=== PATIENT | male | born 1975 | race Caucasian/White ===

== ENCOUNTER 2017-05-11 12:38 | Inpatient (IN) | payer MEDICAID ==
[~2017-05-11] VITALS: Ht 177.8 cm; Wt 70.4 kg
[2017-05-11] MEDS ORDERED: SODIUM CHLORIDE 0.9% 1,000 ML IV ONE ×2 (13:15→15:42)
[2017-05-11] MEDS ORDERED: SODIUM CHLORIDE 0.9% 1,000ML IVBOLUS ONE ×2 (13:30→17:00)
[2017-05-11] MEDS ORDERED: THIAMINE 100 MG in SODIUM CHLORIDE 0.9% 50 ML IVPB ONE (13:30)
[2017-05-11] MEDS ORDERED: ONDANSETRON 2MG/ML, 2ML IVPush ONE (13:30)
[2017-05-11] MEDS ORDERED: ONDANSETRON 2MG/ML, 2ML ONE (13:44)
[2017-05-11] MEDS ORDERED: THIAMINE 100MG TABLET ONE (13:44)
[2017-05-11 14:05] LABS: PH, VENOUS 7.164 pH (7.320-7.420)
[2017-05-11 14:10] LABS: MEAN CORPUSCULAR HGB CONC 33.2 g/dL (33.2-36.2); MEAN CORPUSCULAR VOLUME 105.6 fL (81-97); MEAN PLATELET VOLUME 8.7 fL (7.4-10.4); PLATELET COUNT 245 x10^3/uL (130-400); RED CELL DISTRIBUTION WIDTH 13.4 % (9.4-14.8)
[2017-05-11 14:17] LABS: ALBUMIN 5.2 g/dL (3.4-5.0); ANION GAP 32 mmol/L (5-15); CALCIUM 9.4 mg/dL (8.5-10.1); CHLORIDE 92 mmol/L (98-107)
[2017-05-11 14:20] LABS: ALANINE AMINOTRANSFERASE 135 U/L (12-78); ALKALINE PHOSPHATASE 131 U/L (45-117); BILIRUBIN,TOTAL 2.5 mg/dL (0.2-1.0); CREATININE 2.22 mg/dL (0.7-1.3); TOTAL PROTEIN 9.7 g/dL (6.4-8.2)
[2017-05-11 14:29] LABS: ACETONE, SERUM Moderate(40mg/dL) mg/dL (Negative)
[2017-05-11 14:34] LABS: BASOPHILS # (AUTO) 0.01 x10^3/uL (0-0.1); BASOPHILS % (AUTO) 0 % (0-1); EOSINOPHILS % (AUTO) 0 % (1-7); LYMPHOCYTES # (AUTO) 0.27 x10^3/uL (1-3.4); LYMPHOCYTES % (AUTO) 2 % (22-44); MD SCAN; MONOCYTES # (AUTO) 0.66 x10^3/uL (0.2-0.8); MONOCYTES % (AUTO) 4 % (2-9); NEUTROPHILS # (AUTO) 14.83 x10^3/uL (1.8-6.8); NEUTROPHILS % (AUTO) 94 % (42-75)
[2017-05-11 14:59] LABS: MICROSCOPIC INDICATED
[2017-05-11 15:00] LABS: INTERNATIONAL NORMALIZED RATIO 1.09 (0.93-1.1); PROTHROMBIN TIME 11.2 Seconds (9.6-11.5)
[2017-05-11 15:13] LABS: CULTURE INDICATED? NO
[2017-05-11] MEDS ORDERED: SODIUM CHLORIDE FLUSH 10ML SYR IVF PRN (16:00)
[2017-05-11] MEDS ORDERED: LABETALOL 5MG/ML, 20ML IVPush PRN (16:30)
[2017-05-11] MEDS ORDERED: ACETAMINOPHEN 325 MG TABLET PO PRN (16:30)
[2017-05-11] MEDS ORDERED: LORazepam 2 MG/ML, 1ML IVPush PRN (16:30)
[2017-05-11] MEDS ORDERED: BISACODYL 10 MG SUPP PR PRN (16:30)
[2017-05-11] MEDS ORDERED: ONDANSETRON 2MG/ML, 2ML IVPush PRN (16:30)
[2017-05-11] MEDS ORDERED: POLYETHYLENE GLYCOL 17 GM PACKET PO PRN (16:30)
[2017-05-11] MEDS ORDERED: DOCUSATE 100 MG CAPSULE PO PRN (16:30)
[2017-05-11 17:04] VITALS: BP 134/93
[2017-05-11] MEDS: SODIUM BICARB 8.4%,50ML SYR. 100 MEQ in SODIUM CHLORIDE 0.45% 1,000 ML IV SCH (18:40)
[2017-05-11] MEDS ORDERED: FLU VACC QS2017-18 (36MOS+) UP/PF 0.5 ML IM-VACC ONE (19:00)
[2017-05-11 21:11] VITALS: BP 116/77
[2017-05-11 21:15] LABS: ANION GAP 13 mmol/L (5-15); CALCIUM 7.4 mg/dL (8.5-10.1); CHLORIDE 100 mmol/L (98-107); CREATININE 1.01 mg/dL (0.7-1.3)
[2017-05-11] MEDS: BACLOFEN 10 MG TABLET PO SCH (21:17)
[2017-05-11] MEDS: POTASSIUM CHLORIDE 20 MEQ, MAGNESIUM SULFATE 2 GM, MVI ADULT 10 ML, FOLIC ACID 1 MG in ... IV SCH (21:17)
[2017-05-11] MEDS: HEPARIN 5,000 UNITS/ML, 1ML SQ SCH (21:17)
[2017-05-12 01:20] VITALS: BP 118/76
[2017-05-12] MEDS: SODIUM BICARB 8.4%,50ML SYR. 100 MEQ in SODIUM CHLORIDE 0.45% 1,000 ML IV SCH ×2 (02:06→10:26)
[2017-05-12] MEDS: POTASSIUM CHLORIDE 20 MEQ, MAGNESIUM SULFATE 2 GM, MVI ADULT 10 ML, FOLIC ACID 1 MG in ... IV SCH (02:06)
[2017-05-12 04:46] LABS: BASOPHILS # (AUTO) 0.03 x10^3/uL (0-0.1); BASOPHILS % (AUTO) 0 % (0-1); EOSINOPHILS % (AUTO) 0 % (1-7); LYMPHOCYTES # (AUTO) 0.88 x10^3/uL (1-3.4); LYMPHOCYTES % (AUTO) 11 % (22-44); MD NO; MEAN CORPUSCULAR HEMOGLOBIN 36.3 pg (27.5-34.5); MEAN CORPUSCULAR HGB CONC 34.8 g/dL (33.2-36.2); MEAN CORPUSCULAR VOLUME 104.3 fL (81-97); MEAN PLATELET VOLUME 8.6 fL (7.4-10.4); MONOCYTES # (AUTO) 0.51 x10^3/uL (0.2-0.8); MONOCYTES % (AUTO) 6 % (2-9); NEUTROPHILS # (AUTO) 7.01 x10^3/uL (1.8-6.8); NEUTROPHILS % (AUTO) 83 % (42-75); PLATELET COUNT 173 x10^3/uL (130-400); RED BLOOD COUNT 4.07 x10^6/uL (4.38-5.82)
[2017-05-12 04:56] LABS: CHLORIDE 99 mmol/L (98-107)
[2017-05-12 05:07] LABS: ALANINE AMINOTRANSFERASE 86 U/L (12-78); ALBUMIN 4.1 g/dL (3.4-5.0); ALKALINE PHOSPHATASE 89 U/L (45-117); ANION GAP 13 mmol/L (5-15); BILIRUBIN,TOTAL 1.4 mg/dL (0.2-1.0); CALCIUM 7.7 mg/dL (8.5-10.1); CREATININE 0.97 mg/dL (0.7-1.3); TOTAL PROTEIN 7.1 g/dL (6.4-8.2)
[2017-05-12] MEDS: HEPARIN 5,000 UNITS/ML, 1ML SQ SCH ×3 (05:50→20:59)
[2017-05-12 07:05] VITALS: BP 114/73
[2017-05-12] MEDS: THIAMINE 100MG TABLET PO SCH (08:00)
[2017-05-12] MEDS ORDERED: THIAMINE 100MG TABLET PO SCH (09:00)
[2017-05-12] MEDS: BACLOFEN 10 MG TABLET PO SCH ×3 (09:05→20:58)
[2017-05-12] MEDS: POTASSIUM CHLORIDE 10 MEQ in SODIUM CHLORIDE 0.9% 1,000 ML IV SCH (12:20)
[2017-05-12 13:23] VITALS: BP 120/78
[2017-05-12 20:00] VITALS: BP_SYST 114; BP_SYST 119; BP_DIAS 76
[2017-05-12] MEDS: DIPHENHYDRAMINE 25 MG CAPSULE PO PRN ×2 (22:12→23:14)
[2017-05-12] MEDS ORDERED: ALUMINUM/MAG/SIMETHICONE 30 ML UDC PO PRN (23:30)
[2017-05-13] MEDS: POTASSIUM CHLORIDE 10 MEQ in SODIUM CHLORIDE 0.9% 1,000 ML IV SCH (01:20)
[2017-05-13 02:00] VITALS: BP 124/77
[2017-05-13] MEDS: HEPARIN 5,000 UNITS/ML, 1ML SQ SCH ×2 (04:27→12:35)
[2017-05-13 05:31] LABS: ALBUMIN 3.2 g/dL (3.4-5.0); ANION GAP 6 mmol/L (5-15); CHLORIDE 104 mmol/L (98-107)
[2017-05-13 05:36] LABS: ALANINE AMINOTRANSFERASE 68 U/L (12-78); ALKALINE PHOSPHATASE 71 U/L (45-117); BILIRUBIN,TOTAL 1.1 mg/dL (0.2-1.0); CREATININE 0.64 mg/dL (0.7-1.3)
[2017-05-13 07:25] VITALS: BP 114/74
[2017-05-13] MEDS: THIAMINE 100MG TABLET PO SCH (07:36)
[2017-05-13] MEDS: BACLOFEN 10 MG TABLET PO SCH (07:36)
[2017-05-13] MEDS ORDERED: MULTIVITAMIN 1 TABLET PO SCH (09:00)
[2017-05-13] MEDS ORDERED: FOLIC ACID 1 MG TABLET PO SCH (09:00)
[2017-05-13] MEDS ORDERED: BACL-19 PO (10:19)
[2017-05-13] MEDS ORDERED: FOLI-17 PO (10:19)
[2017-05-13] MEDS ORDERED: THIA100T6 PO (10:19)
[2017-05-13] MEDS ORDERED: MULT1TAB60 PO (10:19)
[2017-05-13 12:17] VITALS: BP 122/77
== END 2017-05-13 14:00 | disposition home or self-care (01) | DRG 682 ==
LOC: ED 15:21 → EDIP 17:36 → 4EST 19:05 → DCLOUNGE 05-13 13:47
PROVIDERS: ADMIT Internal Medicine; ATTEND Internal Medicine
DX: N17.0 Acute kidney failure with tubular necrosis (principal); K72.00 Acute and subacute hepatic failure without coma; E87.2 Acidosis; R65.10 Systemic inflammatory response syndrome (SIRS) of non-infectious origin without acute organ dysfunction; E87.1 Hypo-osmolality and hyponatremia; E87.5 Hyperkalemia; K76.0 Fatty (change of) liver, not elsewhere classified; E86.0 Dehydration; F10.10 Alcohol abuse, uncomplicated; R73.9 Hyperglycemia, unspecified; D75.89 Other specified diseases of blood and blood-forming organs; Z87.891 Personal history of nicotine dependence
CPT/HCPCS: 36415; 74022; 76700; 80048; 80053; 81001; 82010; 82803; 82962; 83690; 83735; 84100; 85025; 85610; 85730; 90686; 93005; 96361; 96374; J1644; J2405; J3475; J3480; J7042; J7030; Q0163

== ENCOUNTER 2018-07-05 23:25 | Inpatient (IN) | payer MEDICAID, OTHER ==
[~2018-07-05] VITALS: Ht 177.8 cm; Wt 74.9 kg
[~2018-07-05 23:25] MED LIST: BACL-19 PO; FOLI-17 PO; MULT1TAB60 PO; THIA100T67 PO
--- NOTE | 2018-07-05 23:41 | NUR ---
PRESENTS W/ WATERY DIARREAH X 2 DAYS WITH PROGRESSIVE MID TO LEFT LOWER QUADRANT PAIN X 2 HOURS. MILDLY FEBRILE , HR 100, BELLY SLIGHLY TENSE. REPORTS HX OF DIVERTICULITIS. NO SURGICAL HX. ATE SOLIDS/LIQUIDS AT 8
[2018-07-05 23:55] LABS: BASOPHILS # (AUTO) 0.01 x10^3/uL (0-0.1); BASOPHILS % (AUTO) 0 % (0-1); EOSINOPHILS % (AUTO) 0 % (1-7); LYMPHOCYTES # (AUTO) 0.57 x10^3/uL (1-3.4); LYMPHOCYTES % (AUTO) 9 % (22-44); MD NO; MEAN CORPUSCULAR HEMOGLOBIN 34.8 pg (27.5-34.5); MEAN CORPUSCULAR HGB CONC 34.5 g/dL (33.2-36.2); MEAN CORPUSCULAR VOLUME 100.7 fL (81-97); MEAN PLATELET VOLUME 8.4 fL (7.4-10.4); MONOCYTES # (AUTO) 0.47 x10^3/uL (0.2-0.8); MONOCYTES % (AUTO) 8 % (2-9); NEUTROPHILS # (AUTO) 5.21 x10^3/uL (1.8-6.8); NEUTROPHILS % (AUTO) 83 % (42-75); PLATELET COUNT 128 x10^3/uL (130-400); RED BLOOD COUNT 4.34 x10^6/uL (4.38-5.82); RED CELL DISTRIBUTION WIDTH 14.2 % (9.4-14.8)
[2018-07-06] MEDS ORDERED: ONDANSETRON 2MG/ML, 2ML ONE
[2018-07-06] MEDS ORDERED: ONDANSETRON 2MG/ML, 2ML IVPush ONE
[2018-07-06] MEDS: MORPHINE SULFATE 4 MG/ML, 1ML IVPush PRN ×2 (00:02→00:40)
[2018-07-06 00:05] LABS: ALANINE AMINOTRANSFERASE 100 U/L (12-78); ANION GAP 9 mmol/L (5-15); CALCIUM 8.7 mg/dL (8.5-10.1); CHLORIDE 98 mmol/L (98-107)
[2018-07-06 00:08] LABS: ALKALINE PHOSPHATASE 132 U/L (45-117); BILIRUBIN,TOTAL 1.8 mg/dL (0.2-1.0); CREATININE 0.82 mg/dL (0.7-1.3)
--- NOTE | 2018-07-06 00:11 | NUR ---
SPOKE TO PROVIDER ABOUT PATIENT MILD FEVER-TO MONITOR FOR NOW PATIENT NPO AND WITH FREQ DIARRHEA. YVAN REMINDED ABOUT IMPORTANCE OF PROMPT UA. CALL BROTHERS IN HAND/SIDE RAILS UP. AT BEDSIDE
--- NOTE | 2018-07-06 00:24 | NUR ---
report from marisa hidalgo assumed care of pt
--- NOTE | 2018-07-06 00:25 | NUR ---
UA SENT AT 1220A (VERY CONCENTRATED/DARK URINE), TO CT SCAN AT 1225. PATIENT REPORTS PAIN TO 0/10 REPORT TO LES RN
[2018-07-06 00:32] LABS: CULTURE INDICATED? YES; MICROSCOPIC INDICATED
[2018-07-06] MEDS ORDERED: MORPHINE SULFATE 4 MG/ML, 1ML ONE ×2 (00:39)
--- NOTE | 2018-07-06 00:48 | NUR ---
medicated per md request pt in nad
[2018-07-06] MEDS ORDERED: metroNIDAZOLE 500 MG TABLET ONE (00:53)
[2018-07-06] MEDS ORDERED: CIPROFLOXACIN 500 MG TABLET ONE (00:54)
--- NOTE | 2018-07-06 00:57 | NUR ---
ASSUMED CARE OF PATIENT.
[2018-07-06] MEDS ORDERED: CIPROFLOXACIN 500 MG TABLET PO ONE (01:00)
[2018-07-06] MEDS ORDERED: METRONIDAZOLE PMX 500MG/100ML 100 ML IVPB ONE (01:00)
[2018-07-06] MEDS ORDERED: CIPROFLOXACIN/PMX 400MG/200ML 100 ML IVPB ONE (01:00)
[2018-07-06] MEDS ORDERED: metroNIDAZOLE 500 MG TABLET PO ONE (01:00)
--- NOTE | 2018-07-06 01:01 | NUR ---
pt to be an admit. pt resting in room. at bedside. will continue to monitor.
[2018-07-06] MEDS ORDERED: OMNIPAQUE 350 MG/ML, 100ML BOTTLE ONE (01:09)
[2018-07-06] MEDS ORDERED: MORPHINE SULFATE 4 MG/ML, 1ML IVPush PRN (01:30)
[2018-07-06] MEDS ORDERED: ONDANSETRON 2MG/ML, 2ML IVPush PRN ×2 (01:30→02:00)
[2018-07-06] MEDS ORDERED: THIAMINE 200 MG in DEXTROSE 5% 50 ML IVPB ONE (02:00)
[2018-07-06] MEDS ORDERED: POTASSIUM CHLORIDE 20 MEQ TAB.ER.PRT PO ONE (02:00)
[2018-07-06] MEDS ORDERED: ENALAPRILAT 1.25 MG/ML, 2ML IVPush PRN (02:00)
[2018-07-06 02:30] VITALS: BP 101/66
[2018-07-06] MEDS: KETOROLAC 30 MG/1 ML IV PRN ×3 (02:57→23:51)
[2018-07-06 04:01] LABS: CLOSTRIDIUM DIFFICILE ANTIGEN NEGATIVE; CLOSTRIDIUM DIFFICILE TOXIN NEGATIVE (Negative)
[2018-07-06] MEDS: NS + 20MEQ KCL 1,000 ML IV SCH ×3 (04:11→23:45)
[2018-07-06] MEDS: ENOXAPARIN 40 MG/0.4 ML SQ SCH (04:11)
[2018-07-06] MEDS: morphine SULFATE 10 MG/ML, 1ML IVPush PRN ×5 (05:00→21:25)
[2018-07-06 05:25] LABS: ALBUMIN 3.9 g/dL (3.4-5.0); ANION GAP 7 mmol/L (5-15); CALCIUM 8.5 mg/dL (8.5-10.1); CHLORIDE 98 mmol/L (98-107)
[2018-07-06] MEDS: metroNIDAZOLE 500 MG TABLET PO SCH ×4 (05:26→21:25)
[2018-07-06 05:29] LABS: ALANINE AMINOTRANSFERASE 91 U/L (12-78); ALKALINE PHOSPHATASE 124 U/L (45-117); BILIRUBIN,TOTAL 1.8 mg/dL (0.2-1.0); TOTAL PROTEIN 6.8 g/dL (6.4-8.2)
[2018-07-06 07:17] VITALS: BP 102/64
[2018-07-06] MEDS: CIPROFLOXACIN 750 MG TABLET PO SCH ×2 (07:44→21:25)
[2018-07-06] MEDS: MULTIVITAMINS/MINERALS TABLET PO SCH (07:44)
[2018-07-06] MEDS: THIAMINE 100MG TABLET PO SCH (07:44)
[2018-07-06] MEDS: FOLIC ACID 1 MG TABLET PO SCH (07:44)
[2018-07-06 13:08] VITALS: BP 105/67
[2018-07-06 15:09] VITALS: BP 112/75
[2018-07-06 20:09] VITALS: BP 120/75
[2018-07-06] MEDS ORDERED: ACETAMINOPHEN 325 MG TABLET PO PRN (21:30)
[2018-07-07] MEDS: ENOXAPARIN 40 MG/0.4 ML SQ SCH (01:26)
[2018-07-07 02:28] VITALS: BP 97/63
[2018-07-07 05:42] LABS: HCT (SEDRATE) 37.5 % (39.2-51.8)
[2018-07-07 05:43] LABS: BASOPHILS # (AUTO) 0.02 x10^3/uL (0-0.1); BASOPHILS % (AUTO) 1 % (0-1); EOSINOPHILS % (AUTO) 0 % (1-7); LYMPHOCYTES # (AUTO) 0.77 x10^3/uL (1-3.4); LYMPHOCYTES % (AUTO) 14 % (22-44); MD NO; MEAN CORPUSCULAR HEMOGLOBIN 34.8 pg (27.5-34.5); MEAN CORPUSCULAR HGB CONC 34.5 g/dL (33.2-36.2); MEAN CORPUSCULAR VOLUME 100.8 fL (81-97); MEAN PLATELET VOLUME 8.5 fL (7.4-10.4); MONOCYTES # (AUTO) 0.75 x10^3/uL (0.2-0.8); MONOCYTES % (AUTO) 14 % (2-9); NEUTROPHILS % (AUTO) 72 % (42-75); PLATELET COUNT 105 x10^3/uL (130-400); RED BLOOD COUNT 3.72 x10^6/uL (4.38-5.82); RED CELL DISTRIBUTION WIDTH 13.6 % (9.4-14.8)
[2018-07-07 05:54] LABS: CHLORIDE 106 mmol/L (98-107)
[2018-07-07] MEDS: KETOROLAC 30 MG/1 ML IV PRN ×3 (06:10→20:28)
[2018-07-07] MEDS: metroNIDAZOLE 500 MG TABLET PO SCH ×4 (06:10→20:28)
[2018-07-07 06:12] LABS: ANION GAP 5 mmol/L (5-15); CALCIUM 7.8 mg/dL (8.5-10.1); CREATININE 0.78 mg/dL (0.7-1.3)
[2018-07-07 08:10] VITALS: BP 102/61
[2018-07-07] MEDS: MULTIVITAMINS/MINERALS TABLET PO SCH (08:47)
[2018-07-07] MEDS: FOLIC ACID 1 MG TABLET PO SCH (08:47)
[2018-07-07] MEDS: CIPROFLOXACIN 750 MG TABLET PO SCH ×2 (08:48→20:28)
[2018-07-07] MEDS: THIAMINE 100MG TABLET PO SCH (08:48)
[2018-07-07] MEDS: morphine SULFATE 10 MG/ML, 1ML IVPush PRN ×2 (08:54→18:33)
[2018-07-07] MEDS: NS + 20MEQ KCL 1,000 ML IV SCH ×2 (10:32→22:32)
[2018-07-07 12:15] VITALS: BP 104/67
[2018-07-07 18:52] VITALS: BP 119/80
[2018-07-08] MEDS: morphine SULFATE 10 MG/ML, 1ML IVPush PRN (00:30)
[2018-07-08] MEDS: ENOXAPARIN 40 MG/0.4 ML SQ SCH (01:45)
[2018-07-08 02:14] VITALS: BP 110/67
[2018-07-08] MEDS: KETOROLAC 30 MG/1 ML IV PRN ×2 (02:41→09:13)
[2018-07-08 05:16] LABS: BASOPHILS % (AUTO) 0 % (0-1); EOSINOPHILS # (AUTO) 0.02 x10^3/uL (0-0.4); EOSINOPHILS % (AUTO) 0 % (1-7); LYMPHOCYTES # (AUTO) 0.84 x10^3/uL (1-3.4); LYMPHOCYTES % (AUTO) 16 % (22-44); MD NO; MEAN CORPUSCULAR HGB CONC 34.4 g/dL (33.2-36.2); MEAN CORPUSCULAR VOLUME 101.9 fL (81-97); MEAN PLATELET VOLUME 8.5 fL (7.4-10.4); MONOCYTES # (AUTO) 0.74 x10^3/uL (0.2-0.8); MONOCYTES % (AUTO) 14 % (2-9); NEUTROPHILS # (AUTO) 3.58 x10^3/uL (1.8-6.8); NEUTROPHILS % (AUTO) 69 % (42-75); PLATELET COUNT 111 x10^3/uL (130-400); RED BLOOD COUNT 3.23 x10^6/uL (4.38-5.82); RED CELL DISTRIBUTION WIDTH 13.8 % (9.4-14.8)
[2018-07-08 05:23] LABS: ANION GAP 6 mmol/L (5-15); CALCIUM 7.5 mg/dL (8.5-10.1); CHLORIDE 106 mmol/L (98-107); CREATININE 0.68 mg/dL (0.7-1.3)
[2018-07-08] MEDS: metroNIDAZOLE 500 MG TABLET PO SCH ×2 (05:37→11:09)
[2018-07-08 07:14] VITALS: BP 110/70
[2018-07-08] MEDS: THIAMINE 100MG TABLET PO SCH (09:10)
[2018-07-08] MEDS: FOLIC ACID 1 MG TABLET PO SCH (09:10)
[2018-07-08] MEDS: MULTIVITAMINS/MINERALS TABLET PO SCH (09:10)
[2018-07-08] MEDS: CIPROFLOXACIN 750 MG TABLET PO SCH (09:10)
[2018-07-08] MEDS ORDERED: THIA100T67 PO (09:44)
[2018-07-08] MEDS ORDERED: CIPR750T PO (09:44)
[2018-07-08] MEDS ORDERED: METR500T PO (09:44)
[2018-07-08] MEDS: NS + 20MEQ KCL 1,000 ML IV SCH (09:50)
== END 2018-07-08 11:45 | disposition home or self-care (01) | DRG 392 ==
LOC: ED 07-06 00:26 → 4NOR 07-06 01:19 → DCLOUNGE 07-08 11:31
PROVIDERS: ADMIT Family Medicine; ATTEND Family Medicine
DX: K57.32 Diverticulitis of large intestine without perforation or abscess without bleeding (principal); N39.0 Urinary tract infection, site not specified; E87.1 Hypo-osmolality and hyponatremia; F10.21 Alcohol dependence, in remission; Z81.1 Family history of alcohol abuse and dependence; Z80.0 Family history of malignant neoplasm of digestive organs; K70.10 Alcoholic hepatitis without ascites; K59.00 Constipation, unspecified; F17.210 Nicotine dependence, cigarettes, uncomplicated; E87.6 Hypokalemia; Z96.653 Presence of artificial knee joint, bilateral
CPT/HCPCS: 36415; 74177; 80048; 80053; 80074; 80307; 81001; 83690; 85025; 85651; 86140; 87040; 87086; 87324; 96374; 96375; G0378; J1650; J1885; J2405; J3411; J3480; Q9967; J2270

== ENCOUNTER 2018-11-16 11:14 | Emergency (ER) | payer MEDICAID ==
[~2018-11-16] VITALS: Ht 177.8 cm; Wt 69.0 kg
[2018-11-16 17:53] VITALS: BP 142/82
== END 2018-11-16 18:00 | disposition home or self-care (01) ==
LOC: ED 14:15
DX: E86.0 Dehydration (principal); K29.20 Alcoholic gastritis without bleeding; F10.19 Alcohol abuse with unspecified alcohol-induced disorder; Y90.0 Blood alcohol level of less than 20 mg/100 ml; R11.2 Nausea with vomiting, unspecified; E87.6 Hypokalemia; F17.200 Nicotine dependence, unspecified, uncomplicated
CPT/HCPCS: 36415; 74021; 80053; 83690; 85025; 96361; 96365; 96366; 96372; 96375; 99284; J2405; J2765; J3411; J3480; J3490; J7030; J7040

== ENCOUNTER 2019-06-09 16:25 | Inpatient (IN) | payer MEDICAID ==
[~2019-06-09] VITALS: Ht 177.8 cm; Wt 77.2 kg
[~2019-06-09 16:25] MED LIST changes: +ACID1TAB7 PO; +CIPR750T PO; +METR500T PO; +NICO-485 TD; +VANC1VIA3 PO
[2019-06-09] MEDS ORDERED: SODIUM CHLORIDE 0.9% 1,000ML IVBOLUS ONE (17:30)
[2019-06-09] MEDS ORDERED: SODIUM CHLORIDE FLUSH 10ML SYR IVF ONE (17:30)
--- NOTE | 2019-06-09 17:42 | NUR ---
Pt ambulated to room, placed on monitor, at bedside, call light within reach, vomitted 1200 ml of bile and partially digested food, NAD, denies additional needs. Law performed assessment and discussed plan of care. Pt medicated per MAY for fever and nausea, see MAR for details. WCTM.
[2019-06-09] MEDS ORDERED: IBUPROFEN 600 MG TABLET ONE (17:45)
[2019-06-09] MEDS ORDERED: ONDANSETRON 2MG/ML, 2ML ONE ×2 (17:45→22:15)
[2019-06-09 17:55] LABS: BASOPHILS # (AUTO) 0.01 x10^3/uL (0-0.1); BASOPHILS % (AUTO) 0 % (0-1); EOSINOPHILS % (AUTO) 0 % (1-7); LYMPHOCYTES # (AUTO) 0.32 x10^3/uL (1-3.4); LYMPHOCYTES % (AUTO) 6 % (22-44); MD NO; MEAN CORPUSCULAR HEMOGLOBIN 32.2 pg (27.5-34.5); MEAN CORPUSCULAR HGB CONC 32.9 g/dL (33.2-36.2); MEAN CORPUSCULAR VOLUME 97.8 fL (81-97); MEAN PLATELET VOLUME 8.6 fL (7.4-10.4); MONOCYTES # (AUTO) 0.01 x10^3/uL (0.2-0.8); MONOCYTES % (AUTO) 0 % (2-9); NEUTROPHILS % (AUTO) 93 % (42-75); PLATELET COUNT 232 x10^3/uL (130-400); RED BLOOD COUNT 5.01 x10^6/uL (4.38-5.82)
[2019-06-09] MEDS ORDERED: ONDANSETRON 2MG/ML, 2ML IVPush ONE (18:00)
[2019-06-09] MEDS ORDERED: IBUPROFEN 600 MG TABLET PO ONE (18:00)
[2019-06-09 18:02] LABS: ALANINE AMINOTRANSFERASE 96 U/L (12-78); ALBUMIN 4.1 g/dL (3.4-5.0); ANION GAP 10 mmol/L (5-15); CALCIUM 9.4 mg/dL (8.5-10.1); CHLORIDE 105 mmol/L (98-107); CREATININE 0.98 mg/dL (0.7-1.3)
[2019-06-09 18:04] LABS: ALKALINE PHOSPHATASE 161 U/L (45-117); TOTAL PROTEIN 8.2 g/dL (6.4-8.2)
[2019-06-09 18:28] LABS: MICROSCOPIC NOT IND
--- NOTE | 2019-06-09 18:34 | NUR ---
Pt , Emerson, would like to be updated if pt is transferred to floor at this time. [phone].
[2019-06-09 18:35] LABS: CULTURE INDICATED? NO
[2019-06-09 18:46] LABS: RAPID INFLUENZA A Negative (Negative); RAPID INFLUENZA B Negative (Negative)
--- NOTE | 2019-06-09 18:50 | NUR ---
Bedside report to MARIA ISABEL Powell, pt care transferred at this time
[2019-06-09] MEDS ORDERED: LACTATED RINGERS 1,000 ML IVBOLUS ONE (19:00)
[2019-06-09 19:03] LABS: CLOSTRIDIUM DIFFICILE ANTIGEN NEGATIVE; CLOSTRIDIUM DIFFICILE TOXIN NEGATIVE (Negative)
[2019-06-09] MEDS ORDERED: OMNIPAQUE 350 MG/ML, 100ML BOTTLE ONE (19:14)
[2019-06-09] MEDS ORDERED: LACTATED RINGERS 500 ML IVBOLUS ONE (20:30)
[2019-06-09] MEDS ORDERED: METRONIDAZOLE PMX 500MG/100ML 100 ML IV ONE (20:30)
[2019-06-09] MEDS ORDERED: AMPICILLIN/SULBACTAM 3 GM in SODIUM CHLORIDE 0.9% 100 ML IV ONE (20:30)
[2019-06-09] MEDS ORDERED: METRONIDAZOLE PMX 500MG/100ML 100 ML ONE (20:52)
[2019-06-09] MEDS ORDERED: MORPHINE SULFATE 4 MG/ML, 1ML ONE (22:15)
[2019-06-09] MEDS ORDERED: ACETAMINOPHEN 500 MG TABLET ONE (22:15)
[2019-06-09] MEDS: morphine SULFATE 10 MG/ML, 1ML IVPush PRN (22:21)
[2019-06-09] MEDS: ACETAMINOPHEN 325 MG TABLET PO PRN (22:22)
[2019-06-09] MEDS ORDERED: LORazepam 2 MG/ML, 1ML IVPush PRN (22:30)
[2019-06-09] MEDS ORDERED: ONDANSETRON 2MG/ML, 2ML IVPush PRN (22:30)
[2019-06-09] MEDS ORDERED: AMPICILLIN/SULBACTAM 1,500 MG in SODIUM CHLORIDE 0.9% 50 ML IV SCH (22:30)
[2019-06-09] MEDS ORDERED: METRONIDAZOLE PMX 500MG/100ML 100 ML IV SCH (22:30)
[2019-06-09 22:40] VITALS: BP 103/59
[2019-06-10 01:56] VITALS: BP 92/59
[2019-06-10] MEDS: morphine SULFATE 10 MG/ML, 1ML IVPush PRN ×6 (02:03→23:15)
[2019-06-10 05:32] VITALS: BP 94/60
[2019-06-10 06:14] LABS: ANION GAP 6 mmol/L (5-15); CALCIUM 7.9 mg/dL (8.5-10.1); CHLORIDE 108 mmol/L (98-107)
[2019-06-10 06:15] LABS: CREATININE 0.86 mg/dL (0.7-1.3)
[2019-06-10 06:28] LABS: MEAN CORPUSCULAR HEMOGLOBIN 32.1 pg (27.5-34.5); MEAN CORPUSCULAR HGB CONC 32.8 g/dL (33.2-36.2); MEAN CORPUSCULAR VOLUME 97.7 fL (81-97); MEAN PLATELET VOLUME 8.9 fL (7.4-10.4); PLATELET COUNT 196 x10^3/uL (130-400); RED BLOOD COUNT 3.94 x10^6/uL (4.38-5.82); RED CELL DISTRIBUTION WIDTH 16.1 % (9.4-14.8)
[2019-06-10 07:08] LABS: MD YES
[2019-06-10 07:11] LABS: BAND#(MANUAL) 0.85 x10^3/uL; BANDS%(MANUAL) 7 % (0-7); LYMPH#(MANUAL) 0.49 x10^3/uL (1-3.4); LYMPHS% (MANUAL) 4 % (22-44); MONOS#(MANUAL) 0.61 x10^3/uL (0.3-2.7); MONOS% (MANUAL) 5 % (2-9); SEG#(MANUAL) 10.25 x10^3/uL (1.8-6.8); SEGS% (MANUAL) 84 % (42-75)
[2019-06-10 07:12] LABS: <PLATELET ESTIMATE> ADEQUATE; <PLT MORPHOLOGY> NORMAL PLT MORPH; <RBC MORPHOLOGY> NORMAL
[2019-06-10] MEDS: ACETAMINOPHEN 325 MG TABLET PO PRN ×2 (08:08→19:54)
[2019-06-10] MEDS: PIPERACILLIN/TAZO/PMX 3.375GM 50 ML IV SCH ×3 (08:08→22:25)
[2019-06-10 13:10] VITALS: BP 92/59
[2019-06-10] MEDS: SODIUM CHLORIDE 0.9% 1,000 ML IV SCH ×2 (15:41→22:26)
[2019-06-10 17:16] VITALS: BP 102/62
[2019-06-10 20:01] VITALS: BP 102/60
[2019-06-11 00:16] VITALS: BP 100/59
[2019-06-11] MEDS: morphine SULFATE 10 MG/ML, 1ML IVPush PRN ×5 (03:33→23:11)
[2019-06-11] MEDS: PIPERACILLIN/TAZO/PMX 3.375GM 50 ML IV SCH ×4 (05:31→23:10)
[2019-06-11] MEDS: SODIUM CHLORIDE 0.9% 1,000 ML IV SCH ×3 (05:31→19:46)
[2019-06-11] MEDS: ACETAMINOPHEN 325 MG TABLET PO PRN (05:42)
[2019-06-11 05:43] LABS: BASOPHILS # (AUTO) 0.01 x10^3/uL (0-0.1); BASOPHILS % (AUTO) 0 % (0-1); EOSINOPHILS # (AUTO) 0.04 x10^3/uL (0-0.4); EOSINOPHILS % (AUTO) 1 % (1-7); LYMPHOCYTES # (AUTO) 0.58 x10^3/uL (1-3.4); LYMPHOCYTES % (AUTO) 9 % (22-44); MD NO; MEAN CORPUSCULAR HGB CONC 32.7 g/dL (33.2-36.2); MEAN CORPUSCULAR VOLUME 97.9 fL (81-97); MEAN PLATELET VOLUME 8.7 fL (7.4-10.4); MONOCYTES # (AUTO) 0.46 x10^3/uL (0.2-0.8); MONOCYTES % (AUTO) 8 % (2-9); NEUTROPHILS # (AUTO) 5.05 x10^3/uL (1.8-6.8); NEUTROPHILS % (AUTO) 82 % (42-75); PLATELET COUNT 158 x10^3/uL (130-400); RED BLOOD COUNT 3.99 x10^6/uL (4.38-5.82); RED CELL DISTRIBUTION WIDTH 15.8 % (9.4-14.8)
[2019-06-11 08:00] VITALS: BP 105/58
[2019-06-11] MEDS: VANCOMYCIN 50 MG/ML ORAL SUSP PO SCH ×2 (08:47→21:18)
[2019-06-11] MEDS ORDERED: LOPERAMIDE 1 MG/5 ML, 10ML UDC PO PRN (15:30)
[2019-06-11 15:39] VITALS: BP 101/62
[2019-06-11] MEDS ORDERED: LOPERAMIDE 2 MG CAPSULE PO PRN (16:00)
[2019-06-11] MEDS: LACTOBACILLUS 1GM/ PACKET PO SCH ×2 (16:15→21:17)
[2019-06-11] MEDS: HEPARIN 5,000 UNITS/ML, 1ML SQ SCH ×2 (16:15→23:10)
[2019-06-11 18:38] VITALS: BP 112/62
[2019-06-11 20:00] VITALS: BP 106/70
[2019-06-12] MEDS ORDERED: TEMAZEPAM 15 MG CAPSULE PO PRN (00:30)
[2019-06-12] MEDS: SODIUM CHLORIDE 0.9% 1,000 ML IV SCH (01:30)
[2019-06-12 03:00] VITALS: BP 114/68
[2019-06-12] MEDS: PIPERACILLIN/TAZO/PMX 3.375GM 50 ML IV SCH ×2 (05:35→11:04)
[2019-06-12 07:45] VITALS: BP 98/63
[2019-06-12] MEDS ORDERED: TRAZODONE 50MG TABLET PO PRN (08:00)
[2019-06-12] MEDS: LACTOBACILLUS 1GM/ PACKET PO SCH (09:00)
[2019-06-12] MEDS: HEPARIN 5,000 UNITS/ML, 1ML SQ SCH (09:01)
[2019-06-12] MEDS: VANCOMYCIN 50 MG/ML ORAL SUSP PO SCH (09:01)
[2019-06-12] MEDS ORDERED: VANC1VIA3 PO (11:36)
[2019-06-12] MEDS ORDERED: LEVO500T47 PO ×3 (11:36→13:58)
== END 2019-06-12 14:10 | disposition home or self-care (01) | DRG 872 ==
LOC: ED 20:00 → EDIP 21:18 → 3N 22:31 → DCLOUNGE 06-12 14:05
PROVIDERS: ADMIT Family Medicine; ATTEND Family Medicine
DX: A41.9 Sepsis, unspecified organism (principal); K57.80 Diverticulitis of intestine, part unspecified, with perforation and abscess without bleeding; F17.200 Nicotine dependence, unspecified, uncomplicated; R65.20 Severe sepsis without septic shock; B96.20 Unspecified Escherichia coli [E. coli] as the cause of diseases classified elsewhere; B96.1 Klebsiella pneumoniae [K. pneumoniae] as the cause of diseases classified elsewhere; Z86.19 Personal history of other infectious and parasitic diseases; Z80.0 Family history of malignant neoplasm of digestive organs; Z82.3 Family history of stroke; Z82.49 Family history of ischemic heart disease and other diseases of the circulatory system
CPT/HCPCS: 36415; 87400; 89055; 96361; 96374; 96375; 99285; J3370; 74177; 80048; 80053; 81003; 83605; 83690; 85025; 87040; 87077; 87186; 87324; 93005; G0378; J0295; J1644; J2405; J2543; J7120; Q9967; J2060; J2270; J7030